=== PATIENT | female | born 2000 | race Caucasian/White ===

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

== ENCOUNTER 2019-09-14 19:03 | Outpatient (CLI) | payer BC ==
[2019-09-14 19:31] LABS: Appearance,Urine Clear (Clear); Bilirubin,Urine Negative (Negative); Blood,Urine Negative (Negative); Color,Urine Light Yellow; Glucose,Urine (UA) Negative (Negative); Ketones,Urine Negative (Negative); Leukocyte Esterase,Urine Moderate (Negative); Mucus,Urine Rare /hpf; Nitrite,Urine Negative (Negative); PH, Urine 6.5 (5.0-8.0); Protein,Urine Negative (Negative); RBC,Urine 1 /hpf (0-5); Specific Gravity,Urine 1.006 (1.001-1.035); Squamous Epithelial Cell,Urine 1 /hpf (0-4); Urobilinogen,Urine <2.0 mg/dL (<2.0); WBC,Urine 4 /hpf (0-5)
[2019-09-14 20:17] VITALS: BP 124/74; PULSE 77; RESP 16; TEMP 97.2
--- NOTE | 2019-09-19 06:30 | P.MSEPDOC ---
Presenting Problems - Arrival Data Date of Arrival on Unit: 09/14/19 Time of Arrival on Unit: 19:04 Mode of Transport: Wheelchair - Complaint OB-Reason for Admission/Chief Complaint: Headache, Pain Medical History - Information : 2 Para: 1 Term: 1 : 0 Abortions: Spontaneous or Elective: 0 Number of Living Children: 1 - Gestational Age Gestational Age by DEIDRA (wks/days): 21 Weeks and 1 Days Review of Systems - Review of Systems Constitutional: No problems Breast: No problems ENT: No problems Cardiovascular: No problems Respiratory: No problems Gastrointestinal: No problems Genitourinary: No problems Musculoskeletal: No problems Neurological: No problems, Dizziness Skin: No problems Vital Signs - Temperature Temperature: 97.2 F Temperature Source: Temporal Artery Scan - Pulse Right Sitting Brachial Pulse Rate: 77 Pulse Assessment Method: Automatic Cuff - Respirations Respiratory Rate: 16 Oxygen Delivery Method: Room Air O2 Sat by Pulse Oximetry: 97 - Blood Pressure Right Arm Sitting Blood Pressure: 124/74 Blood Pressure Mean: 90 Blood Pressure Source: Automatic Cuff Medical Screen Scoring (Pre) - Cervical Exam Dilation: 0 cm = 0 Membranes: Intact - Uterine Contractions Frequency: N/A Duration: N/A Intensity: N/A - Maternal Vital Signs Maternal Temperature: N/A Maternal Blood Pressure: N/A Signs of Preeclampsia: N/A Maternal Respirations: N/A - Maternal Trauma Maternal Trauma: N/A - Assessment - Baby A Baseline FHR: 144 Heart Rate - NICHD Category: Category I (Normal) = 0 Position: N/A Station: N/A - Total Score - Baby A Total Score - Baby A: 0 - Total Score - Baby B Total Score - Baby B: 0 - Total Score - Baby C Total Score - Baby C: 0 - Level of Risk - Baby A Level of Risk - Baby A: Low (0-5) - Level of Risk - Baby B Level of Risk - Baby B: Low (0-5) - Level of Risk - Baby C Level of Risk - Baby C: Low (0-5) Physician Notification (Pre) - Physician Notified Physician Notified Date: 09/14/19 Physician Notified Time: 19:42 New Order Received: Yes (culture urine and discharge with instruction) - Notification Comment Comment: Cervix closed, discharge instruction sheet reviewed with pt, signed, and copy given. for reference. Pt instructed to hydrate, take tylenol for headache and rest. Call if. symptoms worsen. Instructed to call office on Wednesday for results of urine culture. Disposition - Disposition OB Disposition: Triage, Discharge to home Discharge Date: 09/14/19 Discharge Time: 19:58 I agree with the RN Medical Screening Exam: Yes Risk & Benefit of care provided described in d/c instruction: Yes Diagnosis: HEADACHE
== END 2019-09-14 19:58 | disposition home or self-care (01) ==
LOC: FBPOP 19:03
PROVIDERS: ATTEND Obstetrics & Gynecology
DX: O99.89 Other specified diseases and conditions complicating pregnancy, childbirth and the puerperium (principal); R51 Headache; Z3A.21 21 weeks gestation of pregnancy
CPT/HCPCS: 81001; 87086; 99213

== ENCOUNTER 2019-11-17 14:17 | Outpatient (CLI) | payer OTHER ==
[2019-11-17 14:46] LABS: Basophils % (A) 0 %; Eosinophils # (A) 0.1 k/uL (0-0.7); Eosinophils % (A) 1 %; HCT 31.2 % (34.0-46.0); HGB 10.3 gm/dL (11.4-16.0); Lymphocytes # (A) 1.5 k/uL (1.0-4.8); Lymphocytes % (A) 16 %; MCH 28.2 pg (25.0-35.0); MCHC 33.2 g/dL (31.0-37.0); MCV 85.1 fL (80.0-100.0); Mean Platelet Volume 9.6; Monocytes # (A) 0.8 k/uL (0-1.0); Monocytes % (A) 8 %; Neutrophils # (A) 6.7 k/uL (1.3-7.7); Neutrophils % (A) 72 %; Platelet Count 193 k/uL (150-450); Poikilocytosis Slight; RBC 3.66 m/uL (3.80-5.40); RDW 12.5 % (11.5-15.5); WBC 9.3 k/uL (3.8-10.6)
[2019-11-17 14:52] LABS: Appearance,Urine Turbid (Clear); Bilirubin,Urine Negative (Negative); Blood,Urine Negative (Negative); Color,Urine Yellow; Glucose,Urine (UA) Negative (Negative); Ketones,Urine Negative (Negative); Leukocyte Esterase,Urine Large (Negative); Mucus,Urine Occasional /hpf; Nitrite,Urine Positive (Negative); PH, Urine 6.5 (5.0-8.0); Protein,Urine Trace (Negative); RBC,Urine 3 /hpf (0-5); Specific Gravity,Urine 1.015 (1.001-1.035); Urobilinogen,Urine <2.0 mg/dL (<2.0); WBC,Urine 7 /hpf (0-5)
[2019-11-17 14:54] LABS: ALT 12 U/L (4-34); AST 20 U/L (14-36); African American GFR (CKD) >90 (>60 ml/min/1.73 sqM); Blood Urea Nitrogen 3 mg/dL (7-17); LDH 408 U/L (313-618); Non-African American GFR(CKD) >90 (>60 ml/min/1.73 sqM); Uric Acid 4.2 mg/dL (3.7-7.4)
[2019-11-17 15:12] LABS: T4, Free (Free Thyroxine) 0.85 ng/dL (0.78-2.19)
[2019-11-17 15:43] VITALS: BP 153/70; PULSE 93; RESP 16; TEMP 97.1
== END 2019-11-17 15:35 | disposition home or self-care (01) ==
LOC: FBPOP 14:17
PROVIDERS: ATTEND Obstetrics & Gynecology
DX: O13.3 Gestational [pregnancy-induced] hypertension without significant proteinuria, third trimester (principal); Z3A.30 30 weeks gestation of pregnancy
CPT/HCPCS: 59025; 81001; 82565; 82570; 83615; 84156; 84439; 84443; 84450; 84460; 84520; 84550; 85025; 99215

== ENCOUNTER 2019-11-18 15:11 | Emergency (ER) | payer OTHER ==
[2019-11-18 15:15] VITALS: TEMP 98.2
--- NOTE | 2019-11-18 15:34 | ED ---
General Adult HPI - General Chief complaint: Allergic Reaction Stated complaint: Allergic reaction Time Seen by Provider: 11/18/19 15:16 Source: patient Mode of arrival: ambulatory Limitations: no limitations - History of Present Illness Initial comments: Dictation was produced using [employer] dictation software. please excuse any grammatical, word or spelling errors. Chief Complaint: 19-year-old female with chief complaint of tongue swelling and difficulty breathing. History of Present Illness: 19-year-old female she was seen at labor and delivery yesterday. She was prescribed Bactrim for bacteriuria. She states she never had symptoms when they do for this medication. Patient hasn't been on this medication for the last couple days. She took a dose at approximately 4:30 AM. Patient states she was having some sensation of tongue swelling, throat closure or difficulty breathing since yesterday. She's been able to tolerate by mouth. She called some doctor and was told to come to the emergency department for medical evaluation. Patient states she's been having symptoms that started probably around last night. She states that her symptoms have been stable not getting worse or significantly better. She has no abdominal pain she has no rash. The ROS documented in this emergency department record has been reviewed and confirmed by me. Those systems with pertinent positive or negative responses have been documented in the HPI. All other systems are other negative and/or noncontributory. PHYSICAL EXAM: General Impression: Alert and oriented x3, not in acute distress, no drooling no stridor HEENT: Normocephalic atraumatic, extra-ocular movements intact, pupils equal and reactive to light bilaterally, mucous membranes moist, no appreciable tongue swelling, soft palate is unremarkable, posterior oropharynx is completely clear, no appreciable lip swelling Cardiovascular: Heart regular rate and rhythm, S1&S2 audible, no murmurs, rubs or gallops Chest: Lungs clear to auscultation bilaterally, no rhonchi, no wheeze, no rales Abdomen: Bowel sounds present, abdomen soft, non-tender, non-distended, no organ omegaly Musculoskeletal: Pulses present and equal in all extremities, no peripheral edema Motor: no focal deficits noted Neurological: CN II-XII grossly intact, no focal motor or sensory deficits noted Skin: Intact with no visualized rashes Psych: Normal affect and mood ED course: 19-year-old female presents with symptoms of angioedema. Physical examination is benign. She does not have any findings to suggest angioedema. She states that her symptoms began approximately 12-16 hours ago. Vital signs upon arrival are within acceptable limits. Plan care bedside ultrasound was obtained. M-mode was used to measure heart rate which was 174 bpm. she was observed in the emergency department for Approximately 2 hours. No progression of symptoms. Patient clear for discharge. return precautions discussed. She is told to refrain from bactrim. Patient advised to follow-up with gynecology. - Related Data Home Medications Medication Instructions Recorded Confirmed No Known Home Medications 09/14/19 09/14/19 Allergies Allergy/AdvReac Type Severity Reaction Status Date / Time cefprozil [From Cefzil] Allergy Rash/Hives Verified 11/17/19 14:23 erythromycin base Allergy Rash/Hives Verified 11/17/19 14:23 Penicillins Allergy Rash/Hives Verified 11/17/19 14:23 Sulfa (Sulfonamide Allergy Anaphylaxis Verified 11/18/19 15:15 Antibiotics) Review of Systems ROS Statement: Those systems with pertinent positive or pertinent negative responses have been documented in the HPI. ROS Other: All systems not noted in ROS Statement are negative. Past Medical History Past Medical History: No Reported History History of Any Multi-Drug Resistant Organisms: None Reported Past Surgical History: No Surgical Hx Reported Past Anesthesia/Blood Transfusion Reactions: No Reported Reaction Past Psychological History: No Psychological Hx Reported Smoking Status: Never smoker Past Alcohol Use History: None Reported Past Drug Use History: None Reported - Past Family History Mother Family Medical History: No Reported History General Exam Limitations: no limitations Course Vital Signs 11/18/19 11/18/19 15:13 15:23 Temperature 98.2 F Pulse Rate 93 Respiratory 18 16 Rate Blood Pressure 122/75 O2 Sat by Pulse 100 Oximetry Medical Decision Making - Lab Data Lab Results 11/18/19 Range/Units 15:39 Group A Strep Rapid Negative (Negative) Disposition Clinical Impression: Allergic reaction Disposition: HOME SELF-CARE Condition: Good Instructions (If sedation given, give patient instructions): Angioedema (ED) Is patient prescribed a controlled substance at d/c from ED?: No Referrals: Maribel Garcia PAC [REFERRING] - 1-2 days Time of Disposition: 16:57
[2019-11-18 17:04] VITALS: BP 127/78; PULSE 90; RESP 18
== END 2019-11-18 16:59 | disposition home or self-care (01) ==
LOC: EC 15:11
DX: T78.40XA Allergy, unspecified, initial encounter (principal); Z88.0 Allergy status to penicillin; Z88.1 Allergy status to other antibiotic agents; Z88.2 Allergy status to sulfonamides
CPT/HCPCS: 87081; 87430; 99284

== ENCOUNTER 2023-12-21 12:05 | Outpatient (CLI) | payer BC, OTHER ==
[2023-12-21 12:40] LABS: Basophils % (A) 0 %; Eosinophils # (A) 0.1 k/uL (0-0.7); Eosinophils % (A) 1 %; HCT 32.7 % (34.0-46.0); HGB 11.1 gm/dL (11.4-16.0); Lymphocytes # (A) 1.5 k/uL (1.0-4.8); Lymphocytes % (A) 16 %; MCH 28.6 pg (25.0-35.0); MCV 84.1 fL (80.0-100.0); Mean Platelet Volume 8.8; Monocytes # (A) 0.7 k/uL (0-1.0); Monocytes % (A) 8 %; Neutrophils % (A) 73 %; Platelet Count 198 k/uL (150-450); RBC 3.89 m/uL (3.80-5.40); RDW 13.3 % (11.5-15.5); WBC 9.6 k/uL (3.8-10.6)
[2023-12-21 12:46] LABS: Amorphous Sediment,Urine Few /hpf; Appearance,Urine Cloudy (Clear); Bacteria,Urine Rare /hpf; Bilirubin,Urine Negative (Negative); Blood,Urine Negative (Negative); Color,Urine Colorless; Glucose,Urine (UA) Negative (Negative); Ketones,Urine Negative (Negative); Leukocyte Esterase,Urine Small (Negative); Mucus,Urine Rare /hpf; Nitrite,Urine Negative (Negative); PH, Urine 7.5 (5.0-8.0); Protein,Urine Negative (Negative); RBC,Urine 1 /hpf (0-5); Squamous Epithelial Cell,Urine 2 /hpf (0-4); Urobilinogen,Urine <2.0 mg/dL (<2.0); WBC,Urine 3 /hpf (0-5)
[2023-12-21 12:51] LABS: ALT 14 U/L (4-34); AST 22 U/L (14-36); African American GFR (CKD) >90 (>60 ml/min/1.73 sqM); Blood Urea Nitrogen 12 mg/dL (7-17); LDH 178 U/L (120-246); Non-African American GFR(CKD) >90 (>60 ml/min/1.73 sqM); Uric Acid 4.2 mg/dL (3.7-7.4)
[2023-12-21 12:58] LABS: Creatinine,Urine Random 36.4 mg/dL; Protein/Creatinine Ratio,Urine 0.357
[2023-12-21 14:02] VITALS: BP 134/80
== END 2023-12-21 13:20 | disposition home or self-care (01) ==
LOC: FBPOP 12:05
PROVIDERS: ATTEND Obstetrics & Gynecology
DX: O13.3 Gestational [pregnancy-induced] hypertension without significant proteinuria, third trimester (principal); Z3A.38 38 weeks gestation of pregnancy; Z88.8 Allergy status to other drugs, medicaments and biological substances; Z88.1 Allergy status to other antibiotic agents; Z88.0 Allergy status to penicillin; Z88.2 Allergy status to sulfonamides
CPT/HCPCS: 36415; 59025; 81001; 82565; 82570; 83615; 84156; 84450; 84460; 84520; 84550; 85025

== ENCOUNTER → 2023-12-29 | Outpatient (CLI) | payer BC, OTHER ==
[2023-12-29 23:31] VITALS: BP 130/84; PULSE 80; RESP 16; TEMP 96.7
--- NOTE | 2024-02-09 18:16 | P.MSEPDOC ---
Presenting Problems - Arrival Data Date of Arrival on Unit: 12/29/23 Time of Arrival on Unit: 20:30 Mode of Transport: Wheelchair - Complaint OB-Reason for Admission/Chief Complaint: Decreased Movement Medical History - Information : 3 Para: 2 Term: 2 : 0 Abortions: Spontaneous or Elective: 0 Number of Living Children: 2 - Gestational Age Gestational Age by DEIDRA (wks/days): 39 Weeks and 2 Days Review of Systems - Review of Systems Constitutional: No problems Breast: No problems ENT: No problems Cardiovascular: No problems Respiratory: No problems Gastrointestinal: No problems Genitourinary: No problems Musculoskeletal: No problems Neurological: No problems Skin: No problems Vital Signs - Temperature Temperature: 96.7 F Temperature Source: Temporal Artery Scan - Pulse Right Pulse Rate: 80 Pulse Assessment Method: Automatic Cuff - Respirations Respiratory Rate: 16 Oxygen Delivery Method: Room Air O2 Sat by Pulse Oximetry: 100 - Blood Pressure Right Arm Blood Pressure: 130/84 Blood Pressure Mean: 99 Blood Pressure Source: Automatic Cuff Medical Screen Scoring - Uterine Contractions Frequency From (mins): 5 Frequency To (mins): 20 Duration From (seconds): 30 Duration To (seconds): 40 Intensity: Mild Resting: Soft to palpation - Assessment - Baby A Baseline FHR: 125 Heart Rate - NICHD Category: Category I (Normal) NST: Reactive Physician Notification - Physician Notified Physician Notified Date: 12/29/23 Physician Notified Time: 21:49 Physician: Peggy Chao New Order Received: Yes - Notification Comment Comment: Dr Chao updated pt here for decreased movement, 39 1/7 hx 2 term vag deliveries. Cat 1 FHT reactive NST. Maternal vitals WNL. Few contractions noted so cervical exam attempted but cervix is extremely posterior. Mid exam pt reports Dr Sanchez had her sit on her hands so he could reach her cervix and called her 1 cm yesterday. This rn unable to reach cervix and pt states contractions are not regular. Pt states is feeling baby move now. Discharge order received Maternal Triage Index - Maternal Triage Index Presenting for scheduled procedure w/no complaint: No - Stat/Priority 1 Stat Priority 1: No - Urgent/Priority 2 Urgent Priority 2: Yes Provider Notified: Peggy Chao Provider Notified Time: 21:49 Criteria Met for Priority 2: decreased mvt Disposition - Disposition OB Disposition: Discharge to home Discharge Date: 12/29/23 Discharge Time: 21:55 I agree with the RN Medical Screening Exam: Yes Case reviewed; plan agreed upon as documented in EMR&OBIX.: Yes Diagnosis: DECREASED MOVEMENTS, THIRD TRIMESTER, FETUS 1
== END ==
LOC: FBPOP 20:30
PROVIDERS: ATTEND Obstetrics & Gynecology Obstetrics
DX: O36.8131 Decreased fetal movements, third trimester, fetus 1 (principal); Z3A.39 39 weeks gestation of pregnancy; Z88.8 Allergy status to other drugs, medicaments and biological substances; Z88.1 Allergy status to other antibiotic agents; Z88.0 Allergy status to penicillin; Z88.2 Allergy status to sulfonamides
CPT/HCPCS: 59025; 99213

== ENCOUNTER 2024-01-03 21:40 | Outpatient (CLI) | payer BC, OTHER ==
[2024-01-04 00:13] VITALS: BP 136/82; PULSE 75; RESP 16; TEMP 97.4
--- NOTE | 2024-02-09 18:19 | P.MSEPDOC ---
Presenting Problems - Arrival Data Date of Arrival on Unit: 01/03/24 Time of Arrival on Unit: 21:40 Mode of Transport: Ambulatory - Complaint OB-Reason for Admission/Chief Complaint: Possible Onset of Labor Medical History - Information : 3 Para: 2 Term: 2 : 0 Abortions: Spontaneous or Elective: 0 Number of Living Children: 2 - Gestational Age Gestational Age by DEIDRA (wks/days): 40 Weeks and 0 Days Review of Systems - Review of Systems Constitutional: No problems Breast: No problems ENT: No problems Cardiovascular: No problems Respiratory: No problems Gastrointestinal: No problems Genitourinary: No problems Musculoskeletal: No problems Neurological: No problems Skin: No problems Vital Signs - Temperature Temperature: 97.4 F Temperature Source: Oral - Pulse Right Brachial Pulse Rate: 75 Pulse Assessment Method: Automatic Cuff - Respirations Respiratory Rate: 16 Oxygen Delivery Method: Room Air - Blood Pressure Right Arm Blood Pressure: 136/82 Blood Pressure Mean: 100 Blood Pressure Source: Automatic Cuff Medical Screen Scoring - Cervical Exam Dilation (cm): 2 Membranes: Intact - Uterine Contractions Frequency From (mins): 2 Frequency To (mins): 10 Duration From (seconds): 40 Duration To (seconds): 60 Intensity: Mild Resting: Soft to palpation - Assessment - Baby A Baseline FHR: 125 Heart Rate - NICHD Category: Category I (Normal) NST: Reactive Physician Notification - Physician Notified Physician Notified Date: 01/03/24 Physician Notified Time: 22:06 Physician: Peggy Chao New Order Received: Yes - Notification Comment Comment: Patient cervical exam 2/thick/ballotable, patient feels more comfortable. Patient to be discharge home with education on labor precautions. Maternal Triage Index - Maternal Triage Index Presenting for scheduled procedure w/no complaint: No - Stat/Priority 1 Stat Priority 1: No - Urgent/Priority 2 Urgent Priority 2: No - Prompt/Priority 3 Prompt Priority 3: No - Non-Urgent/Priority 4 Non-Urgent Priority 4: Yes Criteria Met for Priority 4: 40 0/7 contractions Disposition - Disposition OB Disposition: Discharge to home Discharge Date: 01/03/24 Discharge Time: 23:20 I agree with the RN Medical Screening Exam: Yes Case reviewed; plan agreed upon as documented in EMR&OBIX.: Yes Diagnosis: FALSE LABOR AT OR AFTER 37 COMPLETED WEEKS OF GESTATION
== END 2024-01-03 23:20 ==
LOC: FBPOP 21:40
PROVIDERS: ATTEND Obstetrics & Gynecology Obstetrics
DX: O47.1 False labor at or after 37 completed weeks of gestation (principal); Z3A.40 40 weeks gestation of pregnancy; Z88.1 Allergy status to other antibiotic agents; Z88.0 Allergy status to penicillin; Z88.8 Allergy status to other drugs, medicaments and biological substances; Z88.2 Allergy status to sulfonamides
CPT/HCPCS: 59025; 99213

== ENCOUNTER 2024-01-04 05:29 | Inpatient (IN) | payer BC, OTHER ==
[2024-01-04] MEDS ORDERED: OXYTOCIN 10 UNIT/ML 1 ML VIAL IM PRN (05:50)
[2024-01-04] MEDS ORDERED: METHYLERGONOVINE 0.2 MG/ML 1 ML AMP IM PRN (05:50)
[2024-01-04] MEDS ORDERED: TERBUTALINE 1 MG/ML VIAL SQ PRN (05:50)
[2024-01-04] MEDS ORDERED: LIDOCAINE 0.5% (PF) 5 MG/ML (50 ML SDV) SQ PRN (05:50)
[2024-01-04] MEDS ORDERED: CARBOPROST TROMETHAMINE 250 MCG/ML 1 ML AMP IM PRN (05:50)
[2024-01-04] MEDS ORDERED: miSOPROStoL 200 MCG TAB PO PRN (05:50)
[2024-01-04] MEDS ORDERED: TRANEXAMIC 1,000 MG/100ML-NACL 1,000 MG in EMPTY BAG 1 BAG IV PRN (05:50)
[2024-01-04] MEDS: LACTATED RINGERS 1,000 ML IV SCH (06:08)
[2024-01-04 06:21] LABS: Basophils % (A) 0 %; Eosinophils # (A) 0.1 k/uL (0-0.7); Eosinophils % (A) 1 %; HGB 11.6 gm/dL (11.4-16.0); Lymphocytes # (A) 1.1 k/uL (1.0-4.8); Lymphocytes % (A) 15 %; MCH 28.5 pg (25.0-35.0); MCHC 34.2 g/dL (31.0-37.0); MCV 83.2 fL (80.0-100.0); Monocytes # (A) 0.7 k/uL (0-1.0); Monocytes % (A) 9 %; Neutrophils # (A) 5.3 k/uL (1.3-7.7); Neutrophils % (A) 72 %; Platelet Count 182 k/uL (150-450); RBC 4.08 m/uL (3.80-5.40); RDW 13.7 % (11.5-15.5); WBC 7.3 k/uL (3.8-10.6)
[2024-01-04] MEDS ORDERED: ROPIVACAINE 5 MG/ML 30 ML VIAL ONE (06:45)
[2024-01-04] MEDS ORDERED: fentaNYL (PF) 50 MCG/ML 5 ML AMP ONE (06:45)
[2024-01-04] MEDS ORDERED: SODIUM CHLORIDE 0.9% 250 ML BAG ONE (06:45)
--- NOTE | 2024-01-04 07:49 | P.HPOB ---
History of Present Illness H&P Date: 01/04/24 Chief Complaint: 40-1/7 weeks, labor The patient is a 23-year-old 3 para 2-0-0-2 admitted at 40-1/7 weeks x 10-week ultrasound. She is admitted with documented spontaneous rupture of membranes and early active labor with all signs reassuring, category 1 heart rate tracing. Her has been entirely uncomplicated. She has expressed desire for tubal ligation and signed a consent to that effect in the office. Group B strep status is negative. Obstetrical history: 3 para 2-0-0-2 with 2 term vaginal deliveries without complications. Current statistics are listed in the history of present illness. EDC of 01/03/2024 was established by a 10-week ultrasound. Laboratory workup demonstrates a blood type of O+ with a negative antibody screen. Rubella status is immune. The remainder of the laboratory workup was within normal limits aside from having a low-grade Pap smear which will be repeated . 1 hour Glucola was normal and group B strep status is negative. Gynecologic history: Unremarkable with no history of any infections to include STDs. Review of Systems Review of systems is confined to history of present illness. Past Medical History Past Medical History: No Reported History History of Any Multi-Drug Resistant Organisms: None Reported Past Surgical History: No Surgical Hx Reported Past Anesthesia/Blood Transfusion Reactions: No Reported Reaction Past Psychological History: Anxiety, Depression Smoking Status: Never smoker Past Alcohol Use History: None Reported Past Drug Use History: None Reported - Past Family History Mother Family Medical History: No Reported History Medications and Allergies Home Medications Medication Instructions Recorded Confirmed Type No Known Home Medications 12/21/23 01/04/24 History Allergies Allergy/AdvReac Type Severity Reaction Status Date / Time cefprozil [From Cefzil] Allergy Rash/Hives Verified 01/04/24 05:31 erythromycin base Allergy Rash/Hives Verified 01/04/24 05:31 Penicillins Allergy Rash/Hives Verified 01/04/24 05:31 Sulfa (Sulfonamide Allergy Anaphylaxis Verified 01/04/24 05:31 Antibiotics) Exam Vital Signs Temp Pulse Resp BP Pulse Ox 01/04/24 05:31 97.8 F 84 16 143/98 100 Intake and Output 01/03/24 01/04/24 01/04/24 22:59 06:59 14:59 Other: # Voids 1 Weight 74.389 kg In general, this is a well-developed, well-nourished white female in no acute distress. Her heart has a regular rhythm and rate without murmur. Her lungs are clear to auscultation bilaterally in all setarns. Her abdomen is gravid, nondistended, has normal active bowel sounds, soft, nontender, and without any palpable masses aside from the uterine fundus. Her extremities are without any cyanosis, clubbing, or edema and are nontender to palpation bilaterally. Digital cervical examination at this time demonstrates the cervix to be 9 cm dilated, 90% effaced, the vertex and presentation at -2 station. Spontaneous rupture of membranes has been documented but there is a palpable membrane in front of the head which is ruptured artificially for clear fluid. Results Result Diagrams: 01/04/24 06:10 Assessment and Plan (1) Active labor at term Current Visit: Yes Status: Acute Code(s): [id number] - SNOMED Code(s): 02118782 Plan: The patient has been admitted for close maternal and surveillance and expectant management be practiced. An epidural catheter is in place for analgesia. I would anticipate normal spontaneous vaginal delivery within the next hour or so.
[2024-01-04] MEDS: OXYTOCIN 30 UNITS/500 ML NS 30 UNIT in SALINE 1 500ML.BAG IV SCH (08:32)
[2024-01-04] MEDS ORDERED: HYDROCORTISONE 2.5% RECTAL CREAM 30 GM TUBE RECTAL PRN (08:39)
[2024-01-04] MEDS ORDERED: SIMETHICONE 80 MG CHEWABLE PO PRN (08:39)
[2024-01-04] MEDS ORDERED: HYDROcodone/APAP 5-325MG 1 EACH TAB PO PRN (08:39)
[2024-01-04] MEDS ORDERED: diphenhydrAMINE 25 MG CAP PO PRN (08:39)
[2024-01-04] MEDS ORDERED: LANOLIN CREAM 1 GM TUBE TOPICAL PRN (08:39)
[2024-01-04] MEDS ORDERED: HYDROcodone/APAP 7.5-325MG 1 EACH TAB PO PRN (08:39)
[2024-01-04] MEDS ORDERED: diphenhydrAMINE 50 MG CAP PO PRN (08:39)
[2024-01-04] MEDS ORDERED: ZOLPIDEM 5 MG TAB PO PRN (08:39)
[2024-01-04] MEDS ORDERED: diphenhydrAMINE 50 MG/ML 1 ML VIAL IVP PRN ×2 (08:39)
[2024-01-04] MEDS ORDERED: BENZOCAINE/MENTHOL SPRAY 1 GM/SPRAY AEROSOL TOPICAL PRN (08:39)
--- NOTE | 2024-01-04 08:45 | P.PROBDLV ---
Vaginal Delivery Note - . Vaginal Delivery Note: The patient is a 23-year-old 3 para 2-0-0-2 admitted at 40-1/7 weeks by good dating parameters. She is admitted in early active labor with documented spontaneous rupture of membranes and all signs reassuring, category 1 heart rate tracing. On labor and delivery, she had an epidural catheter placed for analgesia and then made rapid progress of the active phase of labor to complete. She pushed over the course of approximately 5 contractions to a chip l spontaneous vaginal delivery of a viable 8 pound 3 ounce baby girl with Apgars of 8 at 1 minute and 9 at 5 minutes delivered in the right occiput anterior position. There was a loose nuchal cord x 1 which was reduced following delivery of the infant. The placenta delivered spontaneously, intact, and grossly normal with a grossly normal three-vessel cord inserted approximately 1 cm from the margin of the placental disc. There were no lacerations of the perineum, vagina, or cervix. All sponge, instrument, and needle counts were correct. There were no complications. Estimated blood loss was approximately 100 cc. Both mother and infant are resting comfortably in recovery.
[2024-01-04] MEDS: ACETAMINOPHEN TAB 325 MG TAB PO PRN (15:14)
[2024-01-04] MEDS: ROPIVACAINE 225 MG, fentaNYL (PF). 450 MCG in SODIUM CHLORIDE 0.9% 171 ML EPIDURAL ONE (15:36)
[2024-01-04] MEDS: IBUPROFEN 600 MG TAB PO PRN (16:39)
[2024-01-04] MEDS: SENNOSIDES-DOCUSATE SODIUM 1 EACH TAB PO SCH (21:07)
[2024-01-05 07:19] LABS: Basophils % (A) 0 %; Eosinophils # (A) 0.1 k/uL (0-0.7); Eosinophils % (A) 1 %; HCT 32.3 % (34.0-46.0); Lymphocytes # (A) 1.6 k/uL (1.0-4.8); Lymphocytes % (A) 18 %; MCH 28.8 pg (25.0-35.0); MCV 84.6 fL (80.0-100.0); Mean Platelet Volume 9.2; Monocytes # (A) 0.8 k/uL (0-1.0); Monocytes % (A) 9 %; Neutrophils # (A) 6.2 k/uL (1.3-7.7); Neutrophils % (A) 70 %; Platelet Count 183 k/uL (150-450); RBC 3.82 m/uL (3.80-5.40); RDW 13.8 % (11.5-15.5); WBC 8.9 k/uL (3.8-10.6)
--- NOTE | 2024-01-05 08:44 | P.DS ---
Providers Date of admission: 01/04/24 05:39 Expected date of discharge: 01/05/24 Attending physician: Justice Sanchez Primary care physician: Stated None - Discharge Diagnosis(es) (1) Active labor at term Current Visit: Yes Status: Acute (2) Normal spontaneous vaginal delivery Current Visit: Yes Status: Acute Hospital Course: Is a 23-year-old 3 para 2-0-0-2 admitted at 40-1/7 weeks by good dating parameters. She is admitted with documented spontaneous rupture of membranes and early active labor with all signs reassuring. Her was uncomplicated and group B strep status is negative. She did request a tubal ligation which will be carried out in the phase. On labor delivery, she had an epidural catheter placed for analgesia and made fairly rapid progress to complete and then pushed fairly quickly to of a normal spontaneous vaginal delivery of a viable 8 pound 3 ounce baby girl with Apgars of 8 at 1 minute and 9 at 5 minutes. Her course was unremarkable with vital signs remaining stable and her temperature was afebrile throughout. She was deemed stable for discharge on day #1 and was discharged home to follow-up in the office in 6 weeks time routinely. Discharge instructions included calling for any significantly increased bleeding or foul-smelling lochia, significantly increased fever or abdominal pain, perineal complaints, breast complaints, or anything else that concerned her. She was additionally instructed to have nothing in the vagina for at least 6 weeks time to include intercourse. She understood her instructions and agrees to follow-up as noted above. Discharge medications included only [id number] analgesic pain medications as well as continued vitamins as she has opted to breast- feed. Maternal blood type is O+ and rubella status is immune. Procedures: #1. Epidural analgesia #2. Normal spontaneous vaginal delivery Patient Condition at Discharge: Stable Plan - Discharge Summary New Discharge Prescriptions: No Action No Known Home Medications Discharge Medication List No Known Home Medications 12/21/23 [History] Follow up Appointment(s)/Referral(s): Justice Sanchez MD [STAFF PHYSICIAN] - 6 Weeks Discharge Disposition: HOME SELF-CARE
[2024-01-05 09:25] VITALS: BP 130/91; PULSE 80; RESP 14; TEMP 98
== END 2024-01-05 10:40 | disposition home or self-care (01) | DRG 807 ==
LOC: FBPOP 05:29 → 4FBP 05:39
PROVIDERS: ADMIT Obstetrics & Gynecology Obstetrics; ATTEND Obstetrics & Gynecology
PROC: 10E0XZZ Delivery of Products of Conception, External Approach (ICD-10-PCS; principal; 2024-01-04)
DX: O48.0 Post-term pregnancy (principal); Z37.0 Single live birth; O69.81X0 Labor and delivery complicated by cord around neck, without compression, not applicable or unspecified; O99.344 Other mental disorders complicating childbirth; F41.9 Anxiety disorder, unspecified; F32.A Depression, unspecified; Z3A.40 40 weeks gestation of pregnancy
CPT/HCPCS: 59025; 85025; 86850; 86900; 86901; 99213

== ENCOUNTER → 2024-04-28 | Day surgery (SDC) | payer BC, OTHER ==
--- NOTE | 2024-04-26 01:27 | HP ---
HISTORY AND PHYSICAL DATE OF SCHEDULED SURGERY: 04/28/2024 HISTORY OF PRESENT ILLNESS: The patient is a 23-year-old 3, para 3-0-0-3, who presented to the office for examination and requested sterilization with diagnostic laparoscopy and placement of Filshie clips. She understands the permanent nature of the procedure and has agreed to proceed. PAST MEDICAL HISTORY: Significant for exercise-induced and childhood asthma. PAST SURGICAL HISTORY: Significant for tonsillectomy without any anesthetic complications by report. OBSTETRICAL HISTORY: 3, para 3-0-0-3 with 3 term vaginal deliveries without complications. GYNECOLOGIC HISTORY: Unremarkable with no history of any infections to include STDs. FAMILY HISTORY: Noncontributory. SOCIAL HISTORY: The patient is single and a nonsmoker. She denies any significant alcohol or any other social concerns. CURRENT MEDICATIONS: None. ALLERGIES: She had a rash to both Cefzil and erythromycin. Penicillins additionally caused a rash. REVIEW OF SYSTEMS: Confined to history of present illness. PHYSICAL EXAMINATION: VITAL SIGNS: Stable. The patient is afebrile. GENERAL: This is a well-developed, well-nourished white female, in no acute distress. HEART: Regular rhythm and rate without murmur. LUNGS: Clear to auscultation bilaterally in all stearns. ABDOMEN: Nondistended, has normoactive bowel sounds, soft, nontender without any palpable masses, hepatosplenomegaly, or hernias. EXTREMITIES: Without any cyanosis, clubbing, or edema and are nontender to palpation bilaterally. PELVIS: Demonstrates normal external genitalia and BUS with normal vaginal mucosa and cervix. There is no cervical motion tenderness. The uterus is approximately 4 to 5 weeks in size, retroverted, mobile, nontender, normal in shape. The adnexa are normal and nontender without mass bilaterally. ASSESSMENT AND PLAN: Multiparity with undesired fertility: We had a long discussion regarding reversible methods of contraception. The patient has requested permanent sterilization and has chosen specifically laparoscopic bilateral tubal occlusion with Filshie clips. The risks and complications of the procedure have been thoroughly discussed including the risk for bleeding, bleeding requiring transfusion, infection, and injury to local structures to specifically include the bowel, bladder, and ureters. She has understood all this and has agreed to proceed. MMODL / IJN: [id number] /
[~2024-04-28] MED LIST: ACETAMINOPHEN TAB 325 MG TAB PO PRN; Acetaminophen-Codeine 300-30mg TAB PO PRN; GLYCOPYRROLATE 0.2 MG/ML 2 ML VIAL ONE; IBUPROFEN 600 MG TAB PO PRN; KETOROLAC 15 MG/ML 1 ML VIAL IVP PRN; LACTATED RINGERS 1,000 ML IV SCH; LIDOCAINE 1% (10MG/ML) FOR IV START INTRADERMA PRN; LIDOCAINE 1% INJ 10MG/ML (20 ML MDV) ONE; METOCLOPRAMIDE 5 MG/ML 2 ML VIAL IVP PRN; MIDAZOLAM 2 MG/2 ML VIAL IV PRN; NEOSTIGMINE 1 MG/ML 10 ML VIAL ONE; ONDANSETRON 4 MG/2 ML VIAL IVP PRN; PROPOFOL 10 MG/ML 20 ML VIAL IV ONE; Pre Op ABX Message 1 EACH MISC MISCELLANE ONE; ROCURONIUM 10 MG/ML (5 ML VIAL) IV ONE; SIMETHICONE 80 MG CHEWABLE PO PRN; SUCCINYLCHOLINE CHLORIDE 200 MG/10 ML VIAL IV ONE; diphenhydrAMINE 50 MG/ML 1 ML VIAL IVP PRN; diphenhydrAMINE 50 MG/ML 1 ML VIAL ONE; fentaNYL (PF) 50 MCG/ML 2 ML AMP IVP PRN; fentaNYL (PF) 50 MCG/ML 2 ML AMP ONE
[2024-04-28] MEDS: IV FLUID CONTINUATION 1,000 ML IV ONE (09:32)
[2024-04-28] MEDS: LACTATED RINGERS 1,000 ML IV SCH (09:42)
[2024-04-28] MEDS: ONDANSETRON 4 MG/2 ML VIAL IVP ONE (09:44)
[2024-04-28] MEDS: DEXAMETHASONE SOD PHOSPHATE 4 MG/ML 1 ML VIAL IV ONE (09:44)
[2024-04-28] MEDS: BUPIVACAINE (PF) 0.25% 30 ML VIAL SQ ONE (12:14)
[2024-04-28] MEDS: LACTATED RINGERS 1,000 ML IV ONE (12:26)
--- NOTE | 2024-04-28 12:41 | P.OP ---
Date of Procedure: 04/28/24 Preoperative Diagnosis: #1. Undesired fertility #2. Multiparity Postoperative Diagnosis: Same Procedure(s) Performed: #1. Laparoscopic bilateral tubal occlusion with Filshie clips Anesthesia: GOLDEN Surgeon: Justice Sanchez Estimated Blood Loss (ml): 5 IV fluids (ml): 500 Urine output (ml): 100 Pathology: none sent Condition: stable Disposition: PACU Operative Findings: Preoperative pelvic examination demonstrated roughly 5 to 6-week slightly retroverted normal uterus with normal adnexa bilaterally. Intraoperatively, the uterus appeared still quite large as she is roughly 4 months and still somewhat boggy. Otherwise the uterus, tubes, and ovaries were entirely normal to inspection. There is no evidence of any pathology in the pelvis to include endometriosis. The small bowel, large bowel, and appendix were normal to inspection as was the liver gallbladder and diaphragm. A Filshie clip was firmly placed across the isthmic portion of each fallopian tube. Description of Procedure: The patient was prepped and draped in usual fashion after general endotracheal anesthesia was administered by the anesthesiologist. A speculum was placed and the anterior lip of the cervix was grasped with a single-tooth tenaculum allowing placement of an acorn cannula for intraoperative manipulation of the uterus. The bladder was drained of approximate 100 mL of clear ingrid urine. Attention was turned to the abdomen where a 5 mm incision was made in the vertical fold of the umbilicus allowing insertion of a 5 mm optical trocar under direct visualization without difficulty. Pneumoperitoneum was instilled and Trendelenburg positioning utilized. Site was selected approximately 5 cm above the pubic symphysis in the midline where an 8 mm incision was made in the transverse plane along insertion of an 8 mm trocar under direct visualization without difficulty. The blunt probe was utilized to sweep the bowel from the pelvis. The probe was replaced with a Filshie clip applicator after inspecting the pelvis and upper abdomen with the findings as noted above. The Filshie clip applicator was utilized to place a Filshie clip firmly across the isthmic portion of the right fallopian tube approximately 2 to 3 cm from the cornu where it was firmly affixed. A similar operation was carried out on the left side without difficulty. After ensuring no other pathology in the abdomen or pelvis, the instrumentation was removed and the pneumoperitoneum evacuated through the 2 trocars. The trocars were then removed and the skin incisions closed with interrupted subcuticular stitches of 4-0 Vicryl followed by half-inch Steri- Strips placed with Mastisol. The 2 incisions were infused with a total of 10 cc of quarter percent Marcaine without epinephrine divided equally between the 2 in cisions. Estimated blood loss for the case was 5 cc or less. There were no complications. All sponge, instrument, needle counts were correct.
[2024-04-28 12:50] VITALS: TEMP 97.2
[2024-04-28] MEDS: HYDROmorphone 0.5 MG/0.5 ML SYRINGE IVP PRN (13:11)
[2024-04-28 13:50] VITALS: RESP 16
[2024-04-28 14:11] VITALS: BP 120/78; PULSE 63
== END | disposition home or self-care (01) ==
LOC: OR 09:14
PROVIDERS: ATTEND Obstetrics & Gynecology
DX: Z30.2 Encounter for sterilization (principal); Z88.0 Allergy status to penicillin; Z88.1 Allergy status to other antibiotic agents; Z90.89 Acquired absence of other organs
CPT/HCPCS: 81025; 58671; J0330; J1200; J1100; J2710; J2405; J2001; J3010; J2704; J1170; J0665; J1596